=== PATIENT | male | born 1985 | race Caucasian/White ===

== ENCOUNTER 2022-08-20 07:42 | Emergency (ER) | payer SELFPAY ==
[~2022-08-20] VITALS: Ht 162.5 cm; Wt 79.4 kg
[~2022-08-20 07:42] MED LIST: CLINDAMYCIN150 MG PO; EES400 MG PO; TRAMADOL HCL50 MG PO; VICODIN 5/500 505 MG PO
[2022-08-20] MEDS ORDERED: TYLENOL325 M1 PO (08:25)
[2022-08-20] MEDS ORDERED: TAMIFLU 75MG CA75 MG PO (08:25)
[2022-08-20] MEDS ORDERED: NAPROXEN250 MG PO (08:25)
== END 2022-08-20 08:25 | disposition home or self-care (01) ==
LOC: ED 07:42
DX: J11.1 Influenza due to unidentified influenza virus with other respiratory manifestations (principal); Z20.822 Contact with and (suspected) exposure to COVID-19; Z88.0 Allergy status to penicillin